=== PATIENT | male | born 1995 | race Caucasian/White ===

== ENCOUNTER 2016-09-06 21:53 | Inpatient (IN) | payer OTHER ==
--- NOTE | ~2016-09-06 | PN ---
Unit #: [id number] #: [id number] Patient: GARRY VALIENTE [id number] [facility] [address] [place] [address] [id number] I MR#: [id number] NAME: GARRY VALIENTE ROOM: P258 Age: 21 Sex: M Admission Date: 09/06/2016 : 1995 Attending Physician: Tuan Lee M.D. Admitting Physician: Tuan Lee M.D. Primary Care Physician: Primary Care Physician Nkiia SOLORZANO NOTES DATE OF SERVICE 09/09/2016 DISCUSSION Mr. Valiente is a 21-year-old white male with mood disorder who was seen today. Chart was reviewed and case was discussed with the staff. The patient has been anxious, withdrawn, depressed, and rather seclusive to himself. (1) ___ sleep. Meanwhile, he has been taking the medications and tolerating them fairly well with no reported side effects. MENTAL STATUS EXAMINATION Young white male who is casually dressed with fair personal hygiene, appears to be in no acute distress or discomfort. The patient was awake and alert on interaction with intact orientation. His mood is anxious with congruent affect. His speech is slow and goal-directed. He denies any suicidal or homicidal ideations. His insight and judgment remain slightly impaired. TREATMENT PLAN 1. We will continue him on his current medications and treatment protocol. We will monitor his response to the medications and make further adjustments as needed. 2. We will continue to follow up. Dictated by... Tuan Lee M.D. IAA/shirag TD: 09/09/2016 10:55 JOB #: [id number] Unit #: [id number] #: [id number] Patient: GARRY VALIENTE PROGRESS NOTES Page 1 of 1 X Tuan Lee MD PROGRESS NOTE
--- NOTE | ~2016-09-06 | DS ---
Unit #: [id number] #: [id number] Patient: GARRY VALIENTE [id number] [facility] [address] [place] [address] [id number] I MR#: [id number] NAME: GARRY VALIENTE ROOM: [facility]8 Age: 21 Sex: M Admission Date: 09/06/2016 : 1995 Discharge Date: 09/10/2016 Attending Physician: Tuan Lee M.D. Primary Care Physician: Primary Care Physician No DISCHARGE SUMMARY DISCHARGE DATE 09/11/2016. IDENTIFYING DATA Mr. Valiente is a 21-year-old single white male who is a resident of [place] and was transferred to us from [facility] in [place], [place]. DISCHARGE DIAGNOSES Psychiatric: Bipolar disorder, most recent episode depressed, recurrent, moderate, with psychosis. Medical: None. Stressors: Moderate psychosocial stressors. HISTORY OF PRESENT ILLNESS Please see initial psychiatric evaluation for details. PAST PSYCHIATRIC HISTORY Please see initial psychiatric evaluation for details. PAST MEDICAL HISTORY Please see initial psychiatric evaluation for details. HOSPITAL COURSE The patient was admitted to the adult psychiatric unit at [facility] ed[facility] and was oriented to the hospital environment. Routine p.r.n. medications were initiated, and he was started back on his home medications. Medications were adjusted and he was closely monitored. He was taking the medications regularly and was tolerating them fairly well and was able to show a decent therapeutic response and as such, it was decided that he will be discharged home and will continue treatment on an outpatient basis. DISCHARGE MEDICATIONS Prozac 40 mg a day for depression, Depakote 1000 mg at bedtime for bipolar, and trazodone 150 mg at bedtime for sleep. DISCHARGE CONDITION Stable. PROGNOSIS Unit #: [id number] #: [id number] Patient: GARRY AVLIENTE Dictated by... Ramu Sanz/modl TD: 09/10/2016 11:55 JOB #: [id number] DISCHARGE SUMMARY Page 1 of 1 X Tuan Lee MD X DISCHARGE SUMMARY
--- NOTE | ~2016-09-06 | HP ---
Unit #: [id number] #: [id number] Patient: GARRY GLASS [id number] [place] [address] [id number] I MR#: [id number] NAME: GARRY GLASS ROOM: P258 Age: 21 Sex: M Admission Date: 09/06/2016 : 1995 Attending Physician: Tuan Lee M.D. Admitting Physician: Tuan Lee M.D. Primary Care Physician: Primary Care Physician No HISTORY AND PHYSICAL HISTORY OF PRESENT ILLNESS Garry is a 21 year old admitted to [address] [place] [address] with depression and self-harming behavior. He has been burning and cutting himself. PAST MEDICAL HISTORY 1. History of self-harming. 2. Obesity. 3. Asthma. PAST SURGICAL HISTORY Nothing reported. ALLERGIES Codeine. SOCIAL HISTORY Smokes one pack per day. Also, gets snuff, and denies alcohol and illicit drug use. FAMILY HISTORY Medically noncontributory. REVIEW OF SYSTEMS CONSTITUTIONAL: No fever or chills. HEENT: Denies any sore throat, ear pain or runny nose. CARDIOVASCULAR: Denies chest pain, irregular heart rhythm or palpitations. CHEST: Denies shortness of breath or cough. No hemoptysis. GASTROINTESTINAL: Denies nausea, vomiting, diarrhea or chronic constipation. ENDOCRINE: Denies history of increased thirst or urination. No recent significant weight loss or gain. GENITOURINARY: Denies dysuria, frequency, or hematuria. SKIN: Denies any rashes. HEMATOLOGIC: Denies history of increased bleeding or bruising. MUSCULOSKELETAL: Denies any hot, swollen joints. No generalized muscle pain. NEUROLOGIC: Denies problems with vision or speech. No frequent, severe headaches. No numbness, tingling or weakness in any extremities. Denies loss of bladder or bowel control. CURRENT MEDICATIONS 1. Proventil inhaler p.r.n. 2. Singulair 10 mg q. day. Unit #: [id number] #: [id number] Patient: GARRY GLASS 3. Prozac 40 mg q. day. 4. Milk of Magnesia p.r.n. 5. Maalox p.r.n. 6. Tylenol p.r.n. 7. Desyrel 100 mg q.h.s. 8. Depakote 1000 mg q.h.s. PHYSICAL EXAMINATION GENERAL: Alert, obese. No apparent distress. VITAL SIGNS: Blood pressure 110/70, heart rate 80, respirations 16, and temperature 98.6. WEIGHT: 189. HEIGHT: 5 feet 7 inches. SKIN: Warm and dry without rash. He has multiple circular mcfadden along his left upper and lower arms. These areas are open, but the wounds are clean. There is no increased redness, swelling, heat, or pus noted. There is also a significant laceration along the left lower forearm/wrist. Sutures are in place. There is good skin approximation. Neurovascular intact. HEENT: Normocephalic. TMs not viewed. Oral and nasal passages clear. Conjunctivae clear. PERRLA. EOMs intact. NECK: Supple without lymphadenopathy or thyromegaly. HEART: Regular rate and rhythm without murmur. LUNGS: Clear. ABDOMEN: Soft, nontender. : Not done. EXTREMITIES: No evidence of cyanosis, clubbing or edema. Moves all without focal deficit. NEUROLOGICAL: Grossly within normal limits. Cranial Nerves: II: Visual loving are intact. III, IV AND : Extraocular movements are intact. Pupils are equal, round and reactive to light. V: Facial sensation is grossly normal. VII: Facial movements and expression are normal. VIII: Auditory acuity grossly intact. IX, X: Uvula is midline. Phonation is normal. XI: Patient shrugs shoulders and turns head normally. XII: Tongue protrudes in the midline. Sensory and Motor Function: Sensory and motor sensation is grossly normal. Motor: moves all extremities well. Coordination: Gait is normal. Deep Tendon Reflexes: Intact. IMPRESSION 1. Psychiatric admission. 2. Self-harming behaviors sustained prior to this admission. RECOMMENDATIONS PSYCHIATRIC: Per psychiatrist. MEDICAL: 1. I see no contraindication to participate in this facility's activities. 2. Suture removal in the 7 to 10 days after they were placed. Keep the mcfadden clean with soap and water and covered with band-aid. No further Rx. MEDICAL PROGNOSIS Good. MEDICAL CONDITION Unit #: [id number] #: [id number] Patient: GARRY GLASS Stable. Dictated by... Elaine Dailey P.A.-C. for Ramu Gordon TD: 09/08/2016 06:49 JOB #: [id number] HISTORY AND PHYSICAL Page 1 of 1 X Elaine Dailey HISTORY AND PHYSICAL
--- NOTE | ~2016-09-06 | PA ---
Unit #: [id number] #: [id number] Patient: GARRY VALIENTE [id number] [place] [address] [id number] I MR#: [id number] NAME: GARRY VALIENTE ROOM: P258 Age: 21 Sex: M Admission Date: 09/06/2016 : 1995 Date of Assessment: Attending Physician: Tuan Lee M.D. Admitting Physician: Tuan Lee M.D. Primary Care Physician: Primary Care Physician No PSYCHIATRIC ASSESSMENT DATE OF SERVICE 09/07/2016 IDENTIFYING DATA Mr. Valiente is a 21-year-old single white male who is a resident of [place], [place] and was transferred to us from [facility] in [place], [place] and presented to the emergency department with severe cuts to left wrist and severe mcfadden in upper arm, which the patient reports are self-inflicted and reports increasing depression, and suicidal ideations, accompanied by father throughout his interview and father provided this information as well and the patient reports that he is not employed and has been living with his adopted parents and does report increasing depression, feelings of hopelessness and helplessness and suicidal ideation and was seen to be danger to self and as such, recommendation for safety and stabilization was made and the patient was stepped up to the inpatient unit. SUBSTANCE ABUSE HISTORY The patient reports a history of alcohol and amphetamine abuse, but denies any current substance abuse. PAST PSYCHIATRIC HISTORY The patient has had a history of outpatient and inpatient psychiatric treatment and has been diagnosed and treated for mood disorder. Review of the medical records indicate that he is supposed to be on Depakote and Prozac, but does not appear to be compliant with the medication. He is not showing a therapeutic response to the medication. PAST MEDICAL HISTORY Significant for asthma. ALLERGIES Codeine. PERSONAL AND SOCIAL HISTORY A 21-year-old white male who reports that he is single, unemployed, and lives at home with his mother and father and siblings, and reports fairly decent social support system. MENTAL STATUS EXAMINATION Young white male who was casually dressed with a fair personal hygiene and appears to be in no acute distress or discomfort. He was awake and alert on interaction with intact orientation to time, place, and person. His Unit #: [id number] #: [id number] Patient: GARRY VALIENTE mood was anxious and depressed with a congruent affect. His speech is slow and restricted in content. His thought processes were disorganized with some looseness of associations and suicidal ideations. His insight and judgment remain significantly impaired. DIAGNOSTIC IMPRESSION Psychiatric: Bipolar disorder, most recent episode depressed, recurrent, moderate, without psychotic features. Medical: Asthma. Stressors: Moderate psychosocial stressors. TREATMENT PLAN 1. The patient has presented with a history of mood disorder. We will recommend inpatient hospitalization for safety and stabilization. We will also start him back on his home medications including his Depakote and Lamictal. We will monitor his response to medications and treatment interventions and we will make further adjustments as needed. 2. Supportive therapy was provided to the patient. 3. Safe, structured, and nourishing environment will be provided. ESTIMATED LENGTH OF STAY 5 to 7 days. ABILITY TO HELP SELF Limited. WILLINGNESS TO HELP SELF The patient appears to be willing to help self. STRENGTHS 1. Communicative. 2. Cooperative. PROBLEMS 1. Chronic dysphoric symptoms. 2. Poor social support system. DISCHARGE CRITERIA This will be contingent upon the patient's ability to show resolution of his depression and anxiety and his ability to stay safe to himself, particularly after discharge from the hospital. Dictated by... Ramu Sanz/kolton TD: 09/07/2016 07:13 JOB #: [id number] Unit #: [id number] #: [id number] Patient: GARRY VALIENTE PSYCHIATRIC ASSESSMENT Page 1 of 1 X Tuan Lee MD X PSYCHIATRIC ASSESSMENT
--- NOTE | ~2016-09-06 | CO ---
Unit #: [id number] #: [id number] Patient: GARRY GLASS [id number] [place] [address] [id number] I MR#: [id number] NAME: GARRY GLASS ROOM: [facility]8 Age: 21 Sex: M Admission Date: 09/06/2016 : 1995 Attending Physician: Tuan Lee M.D. Primary Care Physician: Primary Care Physician No Consultation Date: 09/07/2016 CONSULTATION REPORT SUBJECTIVE Garry is a 21-year-old admitted with a self-inflicted laceration to his left anterior forearm/wrist. Sutures were placed in local emergency room. Please see H and P dated 09/07/2016. PLAN Plan will be for suture removal in 7 to 10 days after they were placed. Keep the area clean with soap and water and a dry dressing on a daily basis. Dictated by... Elaine Dailey P.A.-C. for Ramu Gordon/kolton TD: 09/07/2016 23:19 JOB #: [id number] CONSULTATION REPORT Page 1 of 1 X Elaine Dailey CONSULTATION REPORT
--- NOTE | ~2016-09-06 | PN ---
Unit #: [id number] #: [id number] Patient: GARRY VALIENTE [id number] [facility] [address] [place] [address] [id number] I MR#: [id number] NAME: GARRY VALIENTE ROOM: P258 Age: 21 Sex: M Admission Date: 09/06/2016 : 1995 Attending Physician: Tuan Lee M.D. Admitting Physician: Tuan Lee M.D. Primary Care Physician: Primary Care Physician Nikia GILMORE PROGRESS NOTES DATE 09/08/2016 DISCUSSION Mr. Valiente is a 21-year-old white male who was seen today and chart was reviewed and case was discussed with the staff who report patient has been anxious, withdrawn and rather seclusive to himself. Meanwhile, he has been cooperative with treatment recommendations and has been taking medications and tolerating them fairly well with no reported side effects. MENTAL STATUS EXAMINATION Young white male who was casually dressed with fair personal hygiene and appears to be in no acute distress or discomfort. He was awake and alert on interaction with intact orientation. His mood was anxious with congruent affect. He denies any suicidal or homicidal ideations. His insight and judgement remains slightly impaired. TREATMENT PLAN 1. Will continue his current medications and treatment protocol and will monitor his response to medications and make further adjustments as needed. 2. Will continue to follow up. Dictated by... Ramu Sanz/carol TD: 09/08/2016 17:48 JOB #: [id number] Unit #: [id number] #: [id number] Patient: GARRY VALIENTE PROGRESS NOTES Page 1 of 1 X Tuan Lee MD X PROGRESS NOTE
[2016-09-07 09:37] LABS: BASOPHIL% 0.4 % (0-2.5); EOSINOPHIL# 0.1 X10e3 (0-0.7); EOSINOPHIL% 1.6 % (0.0-7.0); HEMATOCRIT 43.9 % (38.0-50.0); HEMOGLOBIN 14.9 gm/dL (13.0-16.0); LYMPHOCYTE# 2.5 X10e3 (1.0-3.5); LYMPHOCYTE% 44.2 % (17.0-45.0); MEAN CELL VOLUME 94.2 FL (83-96); MEAN CORPUSCULAR HEMOGLOBIN 31.9 PG (28-34); MEAN CORPUSCULAR HGB CONC 33.8 g/dL (30-36); MEAN PLATELET VOLUME 7.7 FL (6.5-11.5); MONOCYTE# 0.6 X10e3 (0-1.0); MONOCYTE% 10.3 % (3.0-12.0); NEUTROPHIL# 2.4 X10e3 (1.5-7.1); NEUTROPHIL% 43.5 % (40-75); PLATELET COUNT 222 X10e3 (140-420); RED BLOOD COUNT 4.66 X10e (3.90-5.60); RED CELL DISTRIBUTION WIDTH 14.1 % (11.0-15.5); WHITE BLOOD COUNT 5.6 X10e3 (4.0-10.5)
[2016-09-07 09:43] LABS: DIFF IND NO
[2016-09-07 09:58] LABS: ALBUMIN SERUM 4.2 g/dL (3.5-5.0); BILIRUBIN,TOTAL 0.7 mg/dL (0.2-2.0); BUN/CREATININE RATIO 18.75; CALCIUM SERUM 9.6 mg/dL (8.4-10.2); CREATININE SERUM 0.8 mg/dL (0.6-1.4); GLOM FILT RATE Estimated 127.7 mL/min (>60); POTASSIUM 4.9 mmol/L (3.5-5.1); PROTEIN TOTAL SERUM 6.5 g/dL (6.0-8.3)
== END 2016-09-10 14:30 | disposition home or self-care (01) | DRG 885 ==
LOC: P2L 21:53
PROVIDERS: Psychiatry & Neurology Psychiatry
DX: F31.32 Bipolar disorder, current episode depressed, moderate (principal); E66.9 Obesity, unspecified; J45.909 Unspecified asthma, uncomplicated; F17.210 Nicotine dependence, cigarettes, uncomplicated; S61.512D Laceration without foreign body of left wrist, subsequent encounter
CPT/HCPCS: 80053; 80164; 85025